=== PATIENT | male | born 1960 | race American Indian/Alaskan Native ===

== ENCOUNTER 2020-11-11 15:23 | Emergency (ER) | payer SELFPAY ==
[2020-11-11 16:50] VITALS: BP 151/84
--- NOTE | 2020-11-11 17:38 | Event Note ---
ED Screening Note Date of service: 11/11/20 Time: 17:32 ED Screening Note: 60-year-old -[place] male presents to the emergency room complaining of right leg swelling with pain. Patient reports he recently has traveled multiple visits back and forth from [facility] to [place]. He also reports some shortness of breath. Patient is concerned for DVT. This initial assessment/diagnostic orders/clinical plan/treatment(s) is/are subject to change based on patients health status, clinical progression and re- assessment by fellow clinical providers in the ED. Further treatment and workup at subsequent clinical providers discretion. Patient/guardian urged not to elope from the ED as their condition may be serious if not clinically assessed and managed. Initial orders include:
[2020-11-11 18:06] LABS: Basophils # (Auto) 0.1 K/mm3 (0.0-0.1); Basophils % (Auto) 0.9 % (0.0-1.8); Eosinophils # (Auto) 0.1 K/mm3 (0.0-0.4); Eosinophils % (Auto) 1.4 % (0.0-4.3); Hematocrit 39.4 % (35.5-45.6); Hemoglobin 12.9 gm/dl (11.8-15.2); Lymphocytes # (Auto) 2.2 K/mm3 (1.2-5.4); Lymphocytes % (Auto) 31.8 % (13.4-35.0); Mean Corpuscular HGB Conc 33 % (32-34); Mean Corpuscular Volume 72 fl (84-94); Monocytes # (Auto) 0.5 K/mm3 (0.0-0.8); Monocytes % (Auto) 7.2 % (0.0-7.3); Platelet Count 259 K/mm3 (140-440); Red Blood Count 5.48 M/mm3 (3.65-5.03); Red Cell Distribution Width 15.9 % (13.2-15.2)
--- NOTE | 2020-11-11 18:23 | XRay Report ---
CHEST 2 VIEWS INDICATION / CLINICAL INFORMATION: Shortness of breath. COMPARISON: None available. FINDINGS: SUPPORT DEVICES: None. HEART / MEDIASTINUM: The heart size and pulmonary vasculature are normal. LUNGS / PLEURA: No significant pulmonary or pleural abnormality. No pneumothorax. ADDITIONAL FINDINGS: No significant additional findings. IMPRESSION: No acute findings. Signer Name: Yevgeniy Zuñiga MD Signed: 11/11/2020 6:18 PM Workstation Name: [id number]
[2020-11-11 18:24] LABS: Alanine Aminotransferase 13 units/L (7-56); Albumin 4.1 g/dL (3.9-5); BUN/Creatinine Ratio 12; Blood Urea Nitrogen 11 mg/dL (9-20); Calcium 9.4 mg/dL (8.4-10.2); Hemolysis Index 38
--- NOTE | 2020-11-11 18:24 | XRay Report ---
RIGHT KNEE 3 VIEWS INDICATION / CLINICAL INFORMATION: Right knee pain and swelling. COMPARISON: None available. FINDINGS: BONES / JOINT(S): There are [id number] tricompartmental degenerative changes, most prominent in volving the patellofemoral joint. There is a large suprapatellar joint effusion. There are one or mor e probable intra-articular loose bodies in the posterior aspect of the knee joint. I see no evidence of fracture, subluxation or destructive lesion. SOFT TISSUES: No significant abnormality. ADDITIONAL FINDINGS: None. Signer Name: Yevgeniy Zuñiga MD Signed: 11/11/2020 6:20 PM Workstation Name: [id number]
--- NOTE | 2020-11-11 21:07 | Vascular Lab Report ---
DUPLEX DOPPLER LOWER EXTREMITY VEINS, RIGHT INDICATION / CLINICAL INFORMATION: Right leg swelling and painful. TECHNIQUE: Duplex doppler imaging was performed through the veins of the right lower extremity using venous comp ression and other maneuvers. COMPARISON: None available. FINDINGS: RIGHT COMMON FEMORAL VEIN: Negative. RIGHT FEMORAL VEIN: Negative. RIGHT POPLITEAL VEIN: Negative. RIGHT CALF VEINS: Negative. ADDITIONAL FINDINGS: None. IMPRESSION: 1. No sonographic evidence for DVT in the right lower extremity. Signer Name: Errol Ibarra MD Signed: 11/11/2020 9:02 PM Workstation Name: [id number]
--- NOTE | 2020-11-11 21:09 | Emergency Department Report ---
ED Extremity Problem HPI - General Chief complaint: Extremity Problem,Nontraumatic Stated complaint: RT LEG BLOOD CLOT Source: patient Mode of arrival: Ambulatory Limitations: No Limitations - History of Present Illness Initial comments: 60-year-old -Al[place] male presents to the emergency room complaining of right leg swelling with pain. Patient reports he recently has traveled multiple visits back and forth from [facility] to [place]. He also reports some shortness of breath. Patient is concerned for DVT. Onset/Timin -: week(s) Location: right, knee History of Same: No -: Yes myalgia, Yes arthralgia Quality: aching, sharp Improves with: nothing Worsens with: nothing - Related Data Previous Rx's Medication Instructions Recorded Last Taken Type Ibuprofen [Motrin 800 MG tab] 800 mg PO Q8HR PRN #30 tablet 11/11/20 Unknown Rx Allergies Allergy/AdvReac Type Severity Reaction Status Date / Time No Known Allergies Allergy Verified 11/11/20 16:46 ED Review of Systems ROS: Stated complaint: RT LEG BLOOD CLOT Other details as noted in HPI ED Past Medical Hx - Medications Home Medications: Home Medications Medication Instructions Recorded Confirmed Last Taken Type Ibuprofen [Motrin 800 MG tab] 800 mg PO Q8HR PRN #30 tablet 11/11/20 Unknown Rx ED Physical Exam - General Limitations: No Limitations General appearance: alert, in no apparent distress - Head Head exam: Present: atraumatic, normocephalic - Eye Eye exam: Present: normal appearance - ENT ENT exam: Present: mucous membranes moist - Neck Neck exam: Present: normal inspection, full ROM - Respiratory Respiratory exam: Absent: accessory muscle use - Cardiovascular Cardiovascular Exam: Present: regular rate, normal rhythm. Absent: systolic mur mur, diastolic murmur, rubs, gallop - Expanded Lower Extremity Exam Right Knee exam: Present: full ROM, tenderness, swelling, effusion Lower Leg exam: Present: normal inspection, full ROM. Absent: tenderness, swelling, erythema, palpable cord, Homero's sign Ankle exam: Present: normal inspection, full ROM. Absent: tenderness, swelling Foot/Toe exam: Present: normal inspection, full ROM. Absent: tenderness Neuro vascular tendon exam: Present: no vascular compromise Gait: Positive: observed and normal - Back Exam Back exam: Present: normal inspection - Neurological Exam Neurological exam: Present: alert, oriented X3 - Psychiatric Psychiatric exam: Present: normal affect, normal mood - Skin Skin exam: Present: warm, dry, intact, normal color. Absent: rash ED Course Vital Signs 11/11/20 16:48 Temperature 98.5 F Pulse Rate 96 H Respiratory 18 Rate Blood Pressure 151/84 O2 Sat by Pulse 96 Oximetry ED Medical Decision Making - Lab Data Result diagrams: 11/11/20 17:39 11/11/20 17:39 - Medical Decision Making 60-year-old -Algerian male presents to the emergency room complaining of right leg swelling with pain. Patient reports he recently has traveled multiple visits back and forth from [facility] to [place]. He also reports some shortness of breath. Patient is concerned for DVT. Ultrasound Doppler negative for DVT, x-ray of knee shows a large suprapatellar effusion of the right knee. Patient be discharged home with knee immobilizer Van bandage ibuprofen referral to orthopedics Critical care attestation.: If time is entered above; I have spent that time in minutes in the direct care of this critically ill patient, excluding procedure time. ED Disposition Clinical Impression: Suprapatellar effusion of knee Disposition: [place]-01 TO HOME OR SELFCARE Is pt being admited?: No Does the pt Need Aspirin: No Condition: Stable Instructions: Knee Effusion, [id number] Additional Instructions: X-ray shows a large suprapatellar effusion which is fluid on the knee. Ultrasounds negative for any DVT/clots. Recommend wearing your knee immobilizer follow-up with a orthopedic provider. Prescriptions: Ibuprofen [Motrin 800 MG tab] 800 mg PO Q8HR PRN #30 tablet PRN Reason: Pain , Severe (7-10) Referrals: [facility] [Provider Group] - 3-5 Days Forms: Work/School Release Form(ED)
== END 2020-11-11 22:41 | disposition home or self-care (01) ==
LOC: ED 15:23
DX: M25.461 Effusion, right knee (principal); Z79.899 Other long term (current) drug therapy
CPT/HCPCS: 36415; 71046; 80053; 85025; 85379